=== PATIENT | female | born 2000 | race Caucasian/White ===

== ENCOUNTER 2023-08-04 15:45 | Emergency (ER) | payer MEDICAID, SELFPAY ==
[2023-08-04 16:06] VITALS: BP 123/77; PULSE 80; RESP 16; TEMP 36.8; O2SAT 98; BMI 23.0
--- NOTE | 2023-08-04 17:27 | ED_ITS ---
HPI - General Adult General Chief complaint: Laceration/Wound Stated complaint: Infected gauze L arm following surgery Thursday Time Seen by Provider: 08/04/23 16:39 History of Present Illness HPI narrative: This 22-year-old female comes in with a an abscess in her left forearm that was treated 5 days ago in a different emergency department. The abscess was incised and drained and some packing was placed. The patient came back the next day and had the packing replaced. She was unable to make a subsequent appointment and comes in here. She is taking Keflex and does not report any fevers. She has a remnant of a blue line around what was the erythema surrounding this area. She hardly has any erythema now and is doing much better. Related Data Home Medications Medication Instructions Recorded Confirmed cephalexin 500 mg capsule 1,000 mg PO TID 08/04/23 08/04/23 Allergies Allergy/AdvReac Type Severity Reaction Status Date / Time No Known Drug Allergies Allergy Verified 08/04/23 16:16 Review of Systems Status of ROS: Reports: 10 or more systems reviewed and unremarkable except as noted in History and below Narrative: Constitutional: No fevers, no weight gain or loss. Eyes: No discharge. No vision changes. HENT: No congestion, no sore throat, no ear pain. Cardiovascular: No chest pain, no palpitations. Respiratory: No shortness of breath, no wheezes, no cough. Gastrointestinal: No abdominal pain, no vomiting, no diarrhea. Genitourinary: No dysuria, no hematuria. Musculoskeletal: Normal range of motion. Skin: No rashes, no pruritis. Neurological: No dizziness, weakness, sensory change, speech change. Endo/Heme/Allergies: No bruising or bleeding. No polydipsia. Pysch: no suicidality, no anxiety, no insomnia. All other systems reviewed and are negative. Exam Narrative: Exam Narrative: Constitutional: Well-developed, well-nourished, no acute distress. HEENT: Normocephalic, atraumatic. Neck: Normal range of motion. Nontender. Supple. Heart: Intact distal pulses. Lungs: No chest discomfort. No wheezes, rhonchi, or rales. Abdomen: Nontender. Back: Normal range of motion. Extremities: Normal range of motion. Skin: No rash. Warm. No erythema or pallor. Left forearm has a 1 cm laceration in the mid of the forearm overlying what was an abscess. There is packing in place and no surrounding erythema or active drainage. Neurologic: No altered sensation. No weakness. Alert and oriented. Psychiatric: No suicidality. No anxiety or depression. No insomnia. Nursing notes and vitals signs are reviewed. Const: Vital Signs, click to edit/add: Vital Signs - 24 hr 08/04/23 16:06 Temperature 98.2 F Pulse Rate [Pulse Oximeter] 80 Respiratory Rate 16 Blood Pressure [Ri ght Upper Arm] 123/77 Pulse Oximetry 98 Oxygen Delivery Me thod Room Air Course Vital Signs Vital signs: Initial Vital Signs Temperature 98.2 F 08/04/23 16:06 Temperature Source Oral 08/04/23 16:06 Pulse Rate 80 08/04/23 16:06 Respiratory Rate 16 08/04/23 16:06 Blood Pressure 123/77 08/04/23 16:06 Blood Pressure Mean 92 08/04/23 16:06 Blood Pressure Position Sitting 08/04/23 16:06 Pulse Oximetry 98 08/04/23 16:06 Oxygen Delivery Method Room Air 08/04/23 16:06 Vital Signs Temperature 98.2 F 08/04/23 16:06 Pulse Rate 80 08/04/23 16:06 Respiratory Rate 16 08/04/23 16:06 Blood Pressure 123/77 08/04/23 16:06 Pulse Oximetry 98 08/04/23 16:06 Oxygen Delivery Method Room Air 08/04/23 16:06 Temperature 98.2 F 08/04/23 16:06 Pulse Rate 80 08/04/23 16:06 Respiratory Rate 16 08/04/23 16:06 Blood Pressure 123/77 08/04/23 16:06 Pulse Oximetry 98 08/04/23 16:06 Oxygen Delivery Method Room Air 08/04/23 16:06 Medical Decision Making [facility] Narrative Medical decision making narrative: This patient has an abscess in her left forearm that was packed after incision and drainage. I removed the packing and there is just a small amount of mildly purulent fluid. There is no erythema or significant discomfort. It seems appropriate to leave the packing out at this time. The wound is allowed to heal by secondary intention. I replaced a gauze packing over the wound and secured in place with tape and Coban. The patient is instructed to continue the antibiotic medication as prescribed. Discharge Plan Discharge Clinical Impression: Abscess Patient Disposition: Home, Self-Care Condition: Stable Additional Instructions: Continue medication as prescribed. Allow wound to heal naturally. Follow up with MD return if worsening. Prescriptions: No Action cephalexin 500 mg capsule 1,000 mg PO TID Stand Alone Forms: [employer] Info Instructions
[2023-08-04 17:52] VITALS: BP 115/72; PULSE 90; RESP 20; O2SAT 95
--- NOTE | 2023-08-21 14:02 | PC.SOCIAL ---
Social work: Received call from Teresa Viveros. [facility], who requested MD report and cannon pinion adjuster note be sent from visit to ED on 07/25/23, as there is currently an open case on this patient. Requested information was secure emailed to Teresa Viveros.
== END 2023-08-04 17:53 | disposition home or self-care (01) ==
LOC: ED 17:34
PROVIDERS: Emergency Provider Emergency Medicine Emergency Medical Services
DX: L02.414 Cutaneous abscess of left upper limb (principal)
CPT/HCPCS: 99282; 99283; 99284